=== PATIENT | male | born 1985 | race Caucasian/White ===

== ENCOUNTER 2017-07-27 19:49 | Emergency (ER) | payer OTHER ==
[~2017-07-27] VITALS: Ht 175.3 cm; Wt 76.4 kg
[2017-07-27] MEDS ORDERED: PRAV10TA4 PO (20:03)
[2017-07-27] MEDS ORDERED: PROZ20CA11 PO (20:03)
[2017-07-27] MEDS ORDERED: VITA100067 PO (20:03)
[2017-07-27] MEDS ORDERED: blood thinner (20:03)
[2017-07-27] MEDS ORDERED: MULT1CHW39 PO (20:03)
[2017-07-27] MEDS ORDERED: ONDANSETRON 4MG/2ML VIAL (J2405) IV ONE (20:30)
[2017-07-27] MEDS ORDERED: NS 1,000 ML, NS 1,000 ML IV ONE (20:30)
[2017-07-27 20:46] LABS: BASO # 0.1 10^3/uL (0.0-0.2); BASO % 1.2 % (0.0-1.0); EOS # 0.1 10^3/uL (0.0-0.50); EOS % 0.8 % (0.0-3.0); IMMATURE GRANULOCYTE % 0.1 % (0-0); LYMPH # 2.5 10^3/uL (1.5-4.5); LYMPH % 29.2 % (24.0-44.0); MEAN CORPUSCULAR HEMOGLOBIN 31.5 pg (27.0-33.0); MEAN CORPUSCULAR HGB CONC 34.7 g/dl (32.0-36.5); MEAN CORPUSCULAR VOLUME 90.7 fl (80.0-96.0); MONO # 0.8 10^3/uL (0.0-0.8); MONO % 9.6 % (0.0-5.0); NEUTROPHILS % 59.1 % (36.0-66.0); PLATELET COUNT, AUTOMATED 472 10^3/uL (150-450); RED CELL DISTRIBUTION WIDTH 13.8 % (11.5-14.5); WHITE BLOOD COUNT 8.5 10^3/uL (4.0-10.0)
[2017-07-27 20:57] LABS: INR 0.93
[2017-07-27 21:24] LABS: ANION GAP 5 MEQ/L (8-16); BLOOD UREA NITROGEN 10 MG/DL (7-18); CALCIUM LEVEL 10.1 MG/DL (8.5-10.1); CARBON DIOXIDE LEVEL 29 MEQ/L (21-32); CHLORIDE LEVEL 107 MEQ/L (98-107); CREATININE FOR GFR 0.92 MG/DL (0.70-1.30); GLOMERULAR FILTRATION RATE > 60.0 (>60); GLUCOSE, FASTING 84 MG/DL (70-105); MAGNESIUM LEVEL 2.1 MG/DL (1.8-2.4); POTASSIUM SERUM 3.9 MEQ/L (3.5-5.1); SODIUM LEVEL 141 MEQ/L (136-145)
[2017-07-27] MEDS ORDERED: NS 1,000 ML IV ONE (22:00)
[2017-07-27] MEDS ORDERED: MECLIZINE 25 MG TABLET PO ONE (23:15)
[2017-07-28] MEDS ORDERED: ZOFR4TAB3 PO (00:13)
[2017-07-28 00:29] VITALS: BP 114/73
== END 2017-07-28 00:35 | disposition home or self-care (01) ==
LOC: M ED 19:49
DX: R11.2 Nausea with vomiting, unspecified (principal); R42 Dizziness and giddiness; F41.9 Anxiety disorder, unspecified; F33.9 Major depressive disorder, recurrent, unspecified; Z79.899 Other long term (current) drug therapy
CPT/HCPCS: 80048; 83735; 85025; 85610; 85730; 96374; 99284; J2405

== ENCOUNTER 2017-12-11 10:56 | Day surgery (SDC) | payer OTHER ==
[2017-12-11] MEDS: NS 1,000 ML IV (11:27)
[2017-12-11] MEDS ORDERED: LIDOCAINE 2% INJ 100 MG/5 ML SDV (FOR ANES.) As Ordered (11:46)
[2017-12-11] MEDS ORDERED: PROPOFOL 200 MG/20 ML VIAL As Ordered (11:46)
== END 2017-12-11 12:47 | disposition home or self-care (01) ==
LOC: M OPP 10:56
DX: K44.9 Diaphragmatic hernia without obstruction or gangrene (principal); K76.6 Portal hypertension; E78.00 Pure hypercholesterolemia, unspecified; F41.9 Anxiety disorder, unspecified; F32.9 Major depressive disorder, single episode, unspecified; K58.9 Irritable bowel syndrome, unspecified; K92.2 Gastrointestinal hemorrhage, unspecified; F17.210 Nicotine dependence, cigarettes, uncomplicated; G47.33 Obstructive sleep apnea (adult) (pediatric); I85.00 Esophageal varices without bleeding; Z79.899 Other long term (current) drug therapy; Z90.81 Acquired absence of spleen; Z80.3 Family history of malignant neoplasm of breast
CPT/HCPCS: 43235

== ENCOUNTER 2018-03-17 16:54 | Emergency (ER) | payer OTHER, SELFPAY ==
[2018-03-17] MEDS: NS 1,000 ML IV ×2 (17:44)
[2018-03-17] MEDS: METOCLOPRAMIDE INJ 10MG/2ML VIAL (J2765) IV ×2 (17:44)
[2018-03-17 17:49] LABS: BASO # 0.1 10^3/uL (0.0-0.2); BASO % 1.4 % (0.0-1.0); EOS # 0.1 10^3/uL (0.0-0.50); EOS % 1.4 % (0.0-3.0); HEMATOCRIT 39.7 % (42.0-52.0); HEMOGLOBIN 13.6 g/dl (13.5-17.5); IMMATURE GRANULOCYTE % 0.3 % (0-3.0); LYMPH # 3.8 10^3/uL (1.5-4.5); LYMPH % 37.9 % (24.0-44.0); MEAN CORPUSCULAR HEMOGLOBIN 31.9 pg (27.0-33.0); MEAN CORPUSCULAR HGB CONC 34.3 g/dl (32.0-36.5); MEAN CORPUSCULAR VOLUME 93.2 fl (80.0-96.0); MONO # 0.8 10^3/uL (0.0-0.8); MONO % 7.9 % (0.0-5.0); NEUTROPHILS # 5.1 10^3/uL (1.8-7.7); NEUTROPHILS % 51.1 % (36.0-66.0); PLATELET COUNT, AUTOMATED 427 10^3/uL (150-450); RED BLOOD COUNT 4.26 10^6/uL (4.30-6.10)
[2018-03-17 18:00] LABS: ALBUMIN 4.4 GM/DL (3.2-5.2); ALBUMIN/GLOBULIN RATIO 1.16 (1.00-1.93); ALKALINE PHOSPHATASE 53 U/L (45-117); ALT/SGPT 23 U/L (12-78); ANION GAP 7 MEQ/L (8-16); AST/SGOT 15 U/L (7-37); BILIRUBIN,DIRECT 0.1 MG/DL (0.0-0.2); BILIRUBIN,TOTAL 0.5 MG/DL (0.2-1.0); BLOOD UREA NITROGEN 10 MG/DL (7-18); CALCIUM LEVEL 9.2 MG/DL (8.5-10.1); CARBON DIOXIDE LEVEL 30 MEQ/L (21-32); CHLORIDE LEVEL 105 MEQ/L (98-107); CREATININE FOR GFR 0.95 MG/DL (0.70-1.30); GLOMERULAR FILTRATION RATE > 60.0 (>60); GLUCOSE, FASTING 81 MG/DL (70-100); LIPASE 317 U/L (73-393); SODIUM LEVEL 142 MEQ/L (136-145); TOTAL PROTEIN 8.2 GM/DL (6.4-8.2)
== END 2018-03-17 18:57 | disposition home or self-care (01) ==
LOC: M ED 16:54
DX: R11.0 Nausea (principal); R63.0 Anorexia; E78.5 Hyperlipidemia, unspecified; F43.10 Post-traumatic stress disorder, unspecified; Z79.899 Other long term (current) drug therapy
CPT/HCPCS: J2765

== ENCOUNTER 2019-12-14 10:50 | Emergency (ER) | payer OTHER ==
[~2019-12-14] VITALS: Ht 175.3 cm; Wt 64.7 kg
[~2019-12-14 10:50] MED LIST: ATOR40TA75 PO; HYDR10TAB PO; LEXA1TAB PO; MULT200T7 PO; PRAV10TA4 PO; PROZ20CA11 PO; REGL10TA6 PO; VITA100067 PO; ZOFR4TAB14 PO; blood thinner; medical marijuana
[2019-12-14] MEDS ORDERED: iron supplement (10:59)
[2019-12-14] MEDS ORDERED: [UNRECOGNIZED DRUG - OTHER] (10:59)
[2019-12-14] MEDS ORDERED: WELLTAB40 PO (10:59)
[2019-12-14] MEDS ORDERED: ONDANSETRON 4MG/2ML VIAL (J2405) IV ONE (11:30)
[2019-12-14] MEDS ORDERED: PANTOPRAZOLE 40MG INJ (PROTONIX) (C9113) IV ONE (11:30)
[2019-12-14] MEDS ORDERED: MORPHINE 2 MG/ML 1ML VIAL (J2270) IV ONE (11:30)
[2019-12-14] MEDS ORDERED: NS 1,000 ML IV ONE (11:30)
[2019-12-14 12:08] LABS: BASO # 0.1 10^3/uL (0.0-0.2); BASO % 0.4 % (0.0-1.0); EOS % 0.2 % (0.0-3.0); HEMOGLOBIN 13.6 g/dl (13.5-17.5); LYMPH # 0.9 10^3/uL (1.5-5.0); LYMPH % 6.9 % (24.0-44.0); MEAN CORPUSCULAR HEMOGLOBIN 32.3 pg (27.0-33.0); MEAN CORPUSCULAR HGB CONC 34.9 g/dl (32.0-36.5); MEAN CORPUSCULAR VOLUME 92.6 fl (80.0-96.0); MONO # 0.6 10^3/uL (0.0-0.8); MONO % 4.8 % (0.0-5.0); NEUTROPHILS % 87.4 % (36.0-66.0); PLATELET COUNT, AUTOMATED 359 10^3/uL (150-450); RED BLOOD COUNT 4.21 10^6/uL (4.30-6.10); WHITE BLOOD COUNT 12.5 10^3/uL (4.0-10.0)
[2019-12-14] MEDS ORDERED: ISOVUE-370 76% 100ML VIAL (Q9967) As Ordered ONE (12:09)
[2019-12-14 12:21] LABS: INR 1.04; PROTHROMBIN TIME 13.3 SECONDS (11.8-14.0)
[2019-12-14 12:22] LABS: PARTIAL THROMBOPLASTIN TIME 33.3 SECONDS (25.0-38.4)
[2019-12-14 12:35] LABS: ALBUMIN 4.3 GM/DL (3.2-5.2); BILIRUBIN,DIRECT 0.1 MG/DL (0.0-0.2); BILIRUBIN,TOTAL 0.3 MG/DL (0.2-1.0); TOTAL PROTEIN 7.6 GM/DL (6.4-8.2)
--- NOTE | 2019-12-14 13:12 | REP ---
CT ABDOMEN AND PELVIS WITH IV CONTRAST: TECHNIQUE: Axial contrast enhanced images from the lung bases to the pubic symphysis using 100 mL Isovue 370 intravenous contrast material with multiplanar reformations. Visualized lung bases demonstrate no infiltrate. The liver demonstrates no mass. Gallbladder is grossly unremarkable. Small amount of splenic tissue is seen in the left upper quadrant. There are adjacent metallic clips. Adrenals are normal. No pancreatic mass is seen. Kidneys are unremarkable. There is no abdominal aortic aneurysm. There is no adenopathy. There is no free air or free fluid. No definite bowel wall thickening is seen. The appendix is normal. No pelvic mass is seen. Urinary bladder is mildly distended and grossly unremarkable. IMPRESSION: No free air or free fluid. No evidence of appendicitis. No acute abnormality is detected. Electronically Signed by Chris Barbosa MD 12/14/2019 03:19 P
[2019-12-14] MEDS ORDERED: PANT40TA3 PO (14:49)
[2019-12-14 14:55] VITALS: BP 107/72
== END 2019-12-14 14:57 | disposition home or self-care (01) ==
LOC: M ED 10:50
DX: K62.5 Hemorrhage of anus and rectum (principal); E78.5 Hyperlipidemia, unspecified; G47.33 Obstructive sleep apnea (adult) (pediatric); F43.10 Post-traumatic stress disorder, unspecified; Z79.899 Other long term (current) drug therapy
CPT/HCPCS: 74177; 80047; 80076; 81001; 82150; 83605; 85025; 85610; 85730; 86850; 86870; 86900; 86901; 87040; 96361; 96374; 96375; 99284; C9113; J2270; J2405; Q9967

== ENCOUNTER → 2019-12-15 | Outpatient (REF) | payer OTHER ==
[~2019-12-15] MED LIST changes: +PANT40TA3 PO; +WELLTAB40 PO; +[UNRECOGNIZED DRUG - OTHER]; +iron supplement
== END ==
LOC: M LAB REF 11:00
PROVIDERS: ATTEND Physician Assistant
DX: K92.2 Gastrointestinal hemorrhage, unspecified (principal)

== ENCOUNTER 2022-12-28 11:13 | Emergency (ER) | payer OTHER ==
[~2022-12-28] VITALS: Ht 175.3 cm; Wt 74.1 kg
[~2022-12-28 11:13] MED LIST changes: +PANT40TA29 PO; -PANT40TA3 PO
[2022-12-28] MEDS ORDERED: PROP10TA56 (11:26)
[2022-12-28] MEDS ORDERED: BOOSTRIX/ADACEL VACCINE (DIPHTH/PERTUSS/ACELL/TETANUS) 0.5ML SYR IM ONE (12:40)
[2022-12-28] MEDS ORDERED: PIPERACILLIN/TAZOBACTAM SOD 3.375 GM in D5W MINI-BAG PLUS 50 ML IV ONE (12:40)
[2022-12-28] MEDS ORDERED: HYDROMORPHONE HCL 0.5 MG/ 0.5 ML SYRINGE IV ONE ×2 (12:45→15:00)
[2022-12-28] MEDS ORDERED: LIDOCAINE 2% MDV 20ML VIAL SC ONE (15:55)
[2022-12-28] MEDS ORDERED: CEPH500C PO (16:37)
[2022-12-28] MEDS ORDERED: CIPR-249 PO (16:42)
[2022-12-28] MEDS ORDERED: IBUP80TA PO (16:46)
[2022-12-28 16:49] VITALS: BP 134/88
== END 2022-12-28 17:07 | disposition home or self-care (01) ==
LOC: M ED 11:13
DX: S91.342A Puncture wound with foreign body, left foot, initial encounter (principal); W45.8XXA Other foreign body or object entering through skin, initial encounter; Y92.019 Unspecified place in single-family (private) house as the place of occurrence of the external cause; Y93.01 Activity, walking, marching and hiking; Y99.8 Other external cause status; K44.9 Diaphragmatic hernia without obstruction or gangrene; E78.5 Hyperlipidemia, unspecified; F43.10 Post-traumatic stress disorder, unspecified; F12.90 Cannabis use, unspecified, uncomplicated; Z88.5 Allergy status to narcotic agent
CPT/HCPCS: 73630; 87070; 87075; 87077; 87205; 90715; 96365; 96375; 96376; 99284; J1170; J2543

== ENCOUNTER 2023-07-15 07:22 | Day surgery (SDC) | payer OTHER ==
[~2023-07-15] VITALS: Ht 175.3 cm; Wt 76.1 kg
[~2023-07-15 07:22] MED LIST changes: +CEPH500C PO; +CIPR-249 PO; +IBUP80TA PO; +PROP10TA56; +VENL150C43 PO; +ceFAZolin SOD 2 GM in IV 1 EA IV ONE
[2023-07-15] MEDS ORDERED: LIDOCAINE 2% 100MG/5ML SDV (FOR ANES.) As Ordered ONE (08:23)
[2023-07-15] MEDS ORDERED: propofoL 200 MG/20 ML VIAL As Ordered ONE (08:24)
[2023-07-15] MEDS ORDERED: MIDAZOLAM INJ 2MG/2ML VIAL As Ordered ONE (08:24)
[2023-07-15] MEDS ORDERED: fentaNYL 100 MCG/2 ML INJECTION As Ordered ONE ×2 (08:25→09:40)
[2023-07-15] MEDS ORDERED: LR 1,000 ML IV SCH ×2 (08:40→09:35)
[2023-07-15] MEDS ORDERED: KETOROLAC 60MG 2ML VIAL As Ordered ONE (09:31)
[2023-07-15] MEDS ORDERED: ONDANSETRON 4MG 2ML VIAL As Ordered ONE (09:31)
[2023-07-15] MEDS ORDERED: ACETAMINOPHEN 1000MG 100ML IV BAG As Ordered ONE (09:31)
[2023-07-15] MEDS ORDERED: ONDANSETRON 4MG 2ML VIAL IV PRN (09:35)
[2023-07-15] MEDS ORDERED: HYDROMORPHONE HCL 0.5 MG/ 0.5 ML SYRINGE IV PRN (09:35)
[2023-07-15] MEDS ORDERED: oxyCODONE 5MG TAB PO PRN (09:35)
[2023-07-15] MEDS ORDERED: fentaNYL 100 MCG/2 ML INJECTION IV PRN (09:35)
[2023-07-15] MEDS ORDERED: PERCOCET PO (10:03)
[2023-07-15 11:00] VITALS: BP 138/95; TEMP 97.8; O2SAT 96
== END 2023-07-15 11:20 | disposition home or self-care (01) ==
LOC: M SDC 07:22
PROVIDERS: ATTEND Orthopaedic Surgery Hand Surgery
DX: M77.11 Lateral epicondylitis, right elbow (principal); E78.00 Pure hypercholesterolemia, unspecified; G47.30 Sleep apnea, unspecified; F43.10 Post-traumatic stress disorder, unspecified; Z79.899 Other long term (current) drug therapy
CPT/HCPCS: 24358; 88304; J0131; J0665; J0690; J1100; J1885; J2250; J2405; J3010